=== PATIENT | male | born 1975 | race Hispanic/Latino ===

== ENCOUNTER 2019-04-19 01:57 | Emergency (ER) | payer BC, OTHER ==
[2019-04-19 02:22] LABS: BASOPHILS % (AUTO) 0.6 % (0.0-5.0); EOSINOPHILS % (AUTO) 2.7 % (0.0-8.0); HEMATOCRIT 44.7 % (42-54); LYMPHOCYTES % (AUTO) 28.4 % (21.0-51.0); MEAN CORPUSCULAR HEMOGLOBIN 25.7 pg (27.0-33.0); MEAN CORPUSCULAR HGB CONC 31.3 g/dL (32.0-36.0); MEAN CORPUSCULAR VOLUME 82.2 fL (79-99); MONOCYTES % (AUTO) 11.6 % (3.0-13.0); NEUTROPHILS % (AUTO) 56.2 % (40.0-77.0); PLATELET COUNT (AUTO) 271 K/uL (130-400); RED BLOOD CELL COUNT(AUTO) 5.44 MIL/uL (4.50-6.20); RED CELL DISTRIBUTION WIDTH 14.2 % (11.0-15.5); WHITE BLOOD COUNT (AUTO) 10.8 K/uL (4.8-10.8)
[2019-04-19] MEDS ORDERED: ASPIRIN 325 MG TABLET ONE (02:27)
[2019-04-19] MEDS ORDERED: SODIUM CHLORIDE 0.9% 1000ML 1,000 ML IV ONE (02:30)
[2019-04-19 02:36] LABS: INR 0.89 (0.85-1.15); PARTIAL THROMBOPLASTIN TIME 25.8 SEC (26.3-35.5); POTASSIUM 4.4 mmol/L (3.5-5.1); PROTHROMBIN TIME 9.4 SEC (9.6-11.6)
[2019-04-19 02:48] LABS: ALBUMIN 3.5 g/dL (3.5-5.0); BILIRUBIN,TOTAL 0.4 mg/dL (0.2-1.0); THYROID STIMULATING HORMONE 8.03 uIU/mL (0.36-3.74); TOTAL PROTEIN, SERUM 7.5 g/dL (6.0-8.3)
[2019-04-19] MEDS ORDERED: FAMOTIDINE 20MG TAB 20 MG TAB ONE (03:18)
[2019-04-19] MEDS ORDERED: LIDOCAINE HCL 2% VISCOUS 15 ML UDCUP ONE (03:18)
[2019-04-19] MEDS ORDERED: MAG HYDROX/AL HYDROX/SIMETH ES 30 ML SUSP UDCUP ONE (03:18)
== END 2019-04-19 03:53 | disposition home or self-care (01) ==
LOC: EDH 01:57
DX: I47.1 Supraventricular tachycardia (principal); R94.6 Abnormal results of thyroid function studies
CPT/HCPCS: 36415; 71045; 80053; 82550; 84443; 84484; 85025; 85610; 85730; 93005 ×2; 99291; J7030